=== PATIENT | female | born 1990 | race African-American/Black ===

== ENCOUNTER 2016-05-12 14:33 | Emergency (ER) | payer OTHER ==
[2016-05-12 14:37] VITALS: BP 113/62; PULSE 109; TEMP 98.8; BMI 22.3
--- NOTE | 2016-05-12 14:56 | PDOC ---
History of Present Illness - General Chief Complaint: Cold Symptoms Stated Complaint: COUGH Time Seen by Provider: 05/12/16 14:42 History Source: Patient Exam Limitations: No Limitations - History of Present Illness Initial Comments: 05/12/16 14:54 CC 19 weeks with cough x 1 day; 2 brothers have Flu; no fever; no OB COs Timing/Duration: reports: yesterday Severity: reports: mild Possible Cause: No: illness exposure Associated Symptoms: reports: cough, nasal congestion, nasal drainage. denies: denies symptoms, fever/chills, muscle aches, shortness of breath, sore throat, wheezing Past History - Past Medical History Allergies/Adverse Reactions: Allergies Allergy/AdvReac Type Severity Reaction Status Date / Time No Known Allergies Allergy Verified 05/12/16 14:35 Home Medications: Ambulatory Orders No Home Medications 0 dose .ROUTE UTDICT 12/20/12 Anemia: Yes - Reproductive History (#): 0 Para: 0 - Immunization History Td Vaccination: Yes TDAP Vaccination: Yes Immunization Up to Date: Yes (no flu) - Psycho/Social/Smoking Cessation Hx Anxiety: No Suicidal Ideation: No Smoking Status: No Smoking History: Never smoked Have you smoked in the past 12 months: No Number of Cigarettes Smoked Daily: 0 Information on smoking cessation initiated: No Hx Alcohol Use: No Drug/Substance Use Hx: No Substance Use Type: None Review of Systems - Review of Systems Constitutional: Yes: Malaise. No: Chills, Fever HEENTM: Yes: Nose Congestion Respiratory: Yes: Cough. No: SOB at Rest, Stridor, Wheezing, Hemoptysis Cardiac (ROS): No: Symptoms Reported ABD/GI: No: Symptoms Reported, Diarrhea, Nausea, Vomiting : No: Symptoms Reported, Frequency, Urgency Neurological: No: Symptoms reported *Physical Exam - Vital Signs Last Vital Signs Temp Pulse Resp BP Pulse Ox 98.8 F 109 H 20 113/62 100 05/12/16 14:36 05/12/16 14:36 05/12/16 14:36 05/12/16 14:36 05/12/16 14:36 - Physical Exam General Appearance: Yes: Appropriately Dressed. No: Apparent Distress HEENT: positive: TMs Normal, Pharyngeal Erythema, Nasal Congestion. negative: Tonsillar Exudate, Tonsillar Erythema, TM Bulging, TM Dull, TM Erythema Neck: positive: Supple. negative: Tender, Rigid, Lymphadenopathy (R), Lymphadenopathy (L) Respiratory/Chest: positive: Lungs Clear, Normal Breath Sounds, Dullness. negative: Accessory Muscle Use, Rales, Rhonchi, Stridor, Wheezing Cardiovascular: positive: Regular Rhythm Lymphatic: negative: Adenopathy Medical Decision Making - Medical Decision Making 05/12/16 15:51 STREP AND FLU= NEGATIVE; WILL SUGGEST ISOLATION FROM FLU IN FAMILY [facility]EBERS *DC/Admit/Observation/Transfer Diagnosis at time of Disposition: Acute upper respiratory infection - Discharge Dispostion Disposition: HOME Condition at time of disposition: Stable Admit: No - Patient Instructions Additional Instructions: RETURN FOR ANY CONCERNS; STAY AWAY FROM FLU CARRIERS POSSIBLE; TYLENOL ONLY FOR FEVER - Post Discharge Activity Work/School Note: Back to Work
== END 2016-05-12 15:57 | disposition home or self-care (01) ==
LOC: JERFT 14:33
DX: O26.892 Other specified pregnancy related conditions, second trimester (principal); Z3A.19 19 weeks gestation of pregnancy; J11.1 Influenza due to unidentified influenza virus with other respiratory manifestations
CPT/HCPCS: 87070; 87430; 87804; 99281-25

== ENCOUNTER 2020-10-29 12:12 | Emergency (ER) | payer OTHER ==
[2020-10-29 12:23] VITALS: BP 144/75; PULSE 68; TEMP 98.2; BMI 22.3
[2020-10-29] MEDS ORDERED: ACETAMINOPHEN 500 MG TABLET (FP) PO ONE (13:18)
[2020-10-29] MEDS ORDERED: ACETAMINOPHEN 500 MG TABLET (FP) ONE (13:35)
== END 2020-10-29 13:40 | disposition home or self-care (01) ==
LOC: JERFT 12:12 → JER 12:12 → JERFT 13:40
DX: R51.9 Headache, unspecified (principal); S09.90XA Unspecified injury of head, initial encounter; W22.09XA Striking against other stationary object, initial encounter; Y92.830 Public park as the place of occurrence of the external cause
CPT/HCPCS: 99283-25